=== PATIENT | male | born 1985 | race Caucasian/White ===

== ENCOUNTER 2024-08-17 10:24 | Outpatient (RCR) | payer MEDICAID, SELFPAY ==
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
== END 2024-10-12 10:25 | disposition still patient (30) ==
LOC: HO.SH 10:24
PROVIDERS: PCP Internal Medicine; Visit Provider Physician Assistant
DX: S06.9X0S Unspecified intracranial injury without loss of consciousness, sequela (principal)
CPT/HCPCS: 92523

== ENCOUNTER 2024-12-22 10:07 | Outpatient (REF) | payer MEDICAID, SELFPAY ==
--- OUTSIDE RECORDS SUMMARY | 2024-12-22 10:51 | XMS_ITS | Clinical Summary ---
Author Organization [facility] Address [address] [place] [address] Phone Care Team Providers Care Tax Manager Public Name Role Phone Sharan Peña Primary Care Provider Allergies Active Allergy Reactions Criticality Noted Date Comments Meperidine Hcl 10/23/2008 Medications fexofenadine-pse udoephedrine (Jazmin-D 24 Hour) 180-240 mg per 24 hr tablet 1 tab po daily 11/16/2008 Active loratadine (CLARITIN) 10 mg tablet 1 TABLET DAILY 11/16/2008 Active OLANZapine (ZyPREXA) 20 mg tablet 1 TABLET DAILY Active Active Problems Problem Noted Date Diagnosed Date Alcohol dependence [place] [place], [facility] [place]) Anasarca 03/09/2024 Cannabis use, uncomplicated 03/09/2024 Diabetes ([facility] [place], [facility] [place]) 03/09/2024 Erythema intertrigo 03/09/2024 Hyperlipidemia 03/09/2024 Obesity 03/09/2024 Pilar cyst 03/09/2024 Sleep apnea 03/09/2024 Substance use disorder 03/09/2024 Tetraplegia ([facility] [place], [facility]) Thrombosis 03/09/2024 Traumatic brain injury ([facility], [facility] ) 03/09/2024 Bipolar disorder ([facility] [place], [facility] [place]) 01/2009 Hepatitis C, chronic ([facility] [place], [facility] [place]) 10/23/2008 Immunizations Name Administration Dates Next Due DTP 08/02/1991, 8,03/02/1987, 987,1986 [id number] (Pentacel) 2mo to less than 5yo 03/02/1988 Hepatitis B Pediatric (Enger ix B; Recombivax HB) to less than 20 yo 12/02/1998,06/28/1998,05/24/1998 MMR, measles mumps and rubel la Live (Priorix; M-M-R II) 12mo and older 05/24/1998,10/01/1987 OPV 08/02/1991, 8,03/02/1987, 987,1986 Td Tetanus diptheria (Tdvax) 7yo and older 12/02/1998 Surgical History Surgery Date Site/Laterality Comments OTHER SURGICAL HISTORY PROCEDURE: DENIES PREVIOUS SURGERY Medical History Medical History Date Comments Infectious mononucleosis DX:Infe ctious mononucleosis; COMMENT: 06/19 Bipolar disorder ([facility] V2 4, [facility] V28) DX:Bipolar disorder (HCC) Diabetes ([facility] V24, [facility] V28) 03/09/2024 DX:Diabetes ([facility]) Hyperlipidemia 03/09/2024 DX:Hyperlipidemi a Obesity 03/09/2024 DX:Obesity Sleep apnea 03/09/2024 DX:Sleep apnea Anasarca 03/09/2024 DX:Anasarca Traumatic brain injury ([facility] V24, [facility] V28) 03/09/2024 DX:Traumatic brain injury ([facility]) Alcohol dependence ([facility] V24, [facility] V28) 03/09/2024 DX:Alcohol dependence (HCC) Cannabis use, uncomplicated 03/09/2024 DX:C annabis use, uncomplicated Substance use disorder 03/09/2024 DX:Substa nce use disorder Thrombosis 03/09/2024 DX:Thrombosis Erythema intertrigo 03/09/2024 DX:Erythema intertrigo Family History Relation Name Status Comments Father Alive 04/07/60 Mother Alive 11/26/59 Sister Alive RADHA 05/10/90 Social History Tobacco Use Types Packs/Day Years Used Date Smoking Tobacco: Never Assessed Cigarettes Smokeless Tobacco: Never Alcohol Use Standard Drinks/Week Comments Yes 0 (1 standard drink = 0.6 oz pur e alcohol) Sex and Gender Information Value Date Recorded Sex Assigned at Not on file Legal Sex Male 11:01 PM EST Gender Identity Not on file Sexual Orientation Not on file Obstetrics History Last Filed Vital Signs Vital Sign Reading Time Taken Comments Blood Pressure 103/70 03/09/2024 3:38 PM EDT R A rm Pulse 93 03/09/2024 3:38 PM EDT Temperature - - Respiratory Rate - - Oxygen Saturation - - Inhaled Oxygen Concentration - - Weight 117 kg (257 lb) 08/09/2024 10:26 AM EST Height 177.8 cm (5' 10 ) 08/09/2024 10:26 AM EST Body Mass Index 36.88 08/09/2024 10:26 AM EST Plan of Treatment Upcoming Encounters Date Type Department Care Team (Late st Contact Info) Description 01/08/2025 9:45 AM EDT Office Visit Orthopedic Surgery - [place] [address] [phone] Aryan Fuentes, DPKeturah [address] [address] Health Maintenance Due Date Last Done Comments Diabetes: Annual Foot Exam 1996 Diabetes: Annual Retina Eye Exam 1996 Hepatitis A Vaccines (1 of 2 - Risk 2-dose series) 2005 Pneumococcal Vaccine: Pediatrics (0 to 5 Years) and At-Risk Patients (6 to 64 Years) (1 of 2 - PCV) 2005 DTaP,Tdap,and Td Vaccines (7 - Td or Tdap) 12/02/2008 12/02/1998, 08/02/1991, 03/02/1988, Additional history exists COVID-19 Vaccine ( season) 2024 Cholesterol Screening (Lipid Panel) 05/18/2024 Depression Screening 05/18/2024 Diabetes: Annual Urine Albumin-Creatinine Ratio (uACR) 05/18/2024 Diabetes: Blood Sugar Control Test (HGBA1C) 05/18/2024 HIV Screening 05/18/2024 Hepatitis C Screening 05/18/2024 Social Influencers of Health Screening 05/18/2024 Influenza Vaccine (Season Ended) 2025 Diabetes: Annual GFR (Glomerular Filtration Rate) 04/28/2025 04/28/2024 HIB Vaccines Completed 03/02/1988 IPV Vaccines Completed 08/02/1991, 02/16, 03/02/1988, Additional history exists MMR Vaccines Completed 05/24/1998, 10/01/1987 Hepatitis B Vaccines Completed 12/02/1998, 06/28/1998, 05/24/1998 HPV Vaccines Aged Out No longer eligi ble based on patient's age to complete this topic Meningococcal ACWY Vaccine Aged Out N o longer eligible based on patient's age to complete this topic Meningococcal B Vaccine Aged Out No l onger eligible based on patient's age to complete this topic RSV Immunization Patients Under 20 months Aged Out No longer eligible based on patient's age to complete this topic Varicella Vaccines Aged Out No longer eligible based on patient's age to complete this topic Insurance [place] - [place] Care Teams Tax Manager Public Relationship Specialty Start Date End Date Sharan Peña PA [address] [place] [phone] [facility] - General 04/18/14
== END 2024-12-22 10:08 | disposition home or self-care (01) ==
LOC: HO.SH 10:07
PROVIDERS: Visit Provider Physician Assistant
DX: Z01.118 Encounter for examination of ears and hearing with other abnormal findings (principal); H93.293 Other abnormal auditory perceptions, bilateral
CPT/HCPCS: 92553; 92567

== ENCOUNTER 2025-01-15 10:00 | Outpatient (RCR) | payer MEDICAID, SELFPAY ==
--- NOTE | 2025-01-11 12:40 | MHC.SL.SOA ---
Addendum entered and electronically signed by Christianne Ventura MA, CCC-PIPELINES LABORER 05/24/25 15:40: Authorization was obtained for 12 visits from 01/21-04/22. Patient did not show up for consecutive appointments on 12/18, 01/01, 01/15, and 01/22. No calls were made to cancel. The Speech and Hearing office called to confirm patient's appointment on 02/05. [facility] staff confirmed that they would attend that morning, however, did not arrive for the appointment. [facility] staff requested to cancel patient's appointment the subsequent week on 02/12, as patient was reportedly refusing to come. His next appointment on 02/19 was also cancelled due to transportation issues. A voicemail message was left for the prison manager site, Vashti. Vashti returned this call, and PIPELINES [employer]ORER left another message, however, has not been able to get in contact with Vashti. Patient would benefit from continued speech therapy services targeting multiple areas of concern, including speech clarity, voice, and word retrieval, however, it has been a challenge for patient to attend outpatient speech therapy at another location. Patient is discharged from outpatient speech therapy services, as his attendance has been limited and it has been a challenge for him to commit to weekly appointments at another facility. If he is interested in continuing speech therapy at any point, he would benefit from VNA services, which would provide speech therapy on site at the prison with goals that would target patient's functional needs for daily living. Please be advised, to establish services through the VNA, patient would need a physician's referral. Original Note: Referring Provider: KWASI Cuellar Reason for Referral: TBI with Sequelae Date of Plan of Treatment:08/17/24 Onset of Symptoms/Illness:08/17/17 Date Treatment Started:08/17/24 Medical Diagnosis:TBI (2009), Craniotomy secondary to L Epidural Hemorrhage (2018); Tetraplegia; Obstructive Sleep Apnea Primary Speech Language Diagnosis:R49.0 Dysphonia Secondary Speech Language Diagnosis:R48.2 Apraxia Reason for Visit:Non-billable Event Subjective: Sergio Irving is a 39 year old man presenting with mild anomic aphasia and moderate to severe dysphonia, characterized by poor respiratory coordination for phonation and strained/strangled vocal quality. Sergio's history is significant for TBI and spinal chord injury in 2009, craniotomy in 2018 to evacuate at left sided epidural hemorrhage, tetraplegia, and sleep apnea on CPAP at night. He currently resides in a prison in [place] and is accompanied to his appointments by a caregiver from the home. Sergio's attendance to his speech therapy session has been inconsistent, attending 4 out of 8 scheduled sessions between 11/13/24-01/08/25. Objective: 3.1 Mango will use a semantic strategy (category/antonym/synonym) in a word finding task with 80% accuracy In Progress: Sergio provided 3 synonyms per target word in 88% of trials when provided with moderate verbal and gestural cues. Sergio provided an opposite word to abstract targets (i.e. bland, courtesy, public, stubborn, elegant) in 20/22 trials when provided with maximal verbal and gestural cues. Assessment: Rhyss voice was perceived as more strained/strangled with longer delays initiating voicing. He also answered many questions by gesture, i.e. giving a thumbs up/down. Staff member reports Rhyss voice has sounded this way for approximately a week. Sergio says his voice seems worse at the end of a day and gets soft as a whisper, but otherwise does not notice any patterns regarding his speech production. He acknowledges he does not drink nearly enough, having just one cup of juice with every meal. Sergio reports avoiding drinking because he does not like the process of using the bathroom with assistance. Sergio does have history of tracheostomy, which he believes was placed around 20 years ago. During that time, he was on a tube feed. His stoma now appears closed and he has been back on a PO diet. He does not use any air purifiers or humidifiers and keeps a fan on all day long. He also gets supplemental oxygen at night. Today's session mainly targeted word finding. Sergio was given a target word and was asked to generate 3 other similar words. He benefitted from varied cues, including orthographic cues (i.e. it starts with the letter g ) and sentence completion cues (i.e. you act one way in public, and another way in pr... ). PIPELINES LABORER provided instruction to staff on these cues to assist with the completion of home activities. Notes: As we approach the end date to Sergio's authorization period, a request will be made to continue therapy. Sergio is recommended 12 additional speech therapy sessions (1x weekly x 12 weeks) to target dysphonia and anomia, with goals aimed at easy onset/relaxation techniques, improved breath support, and word retrieval strategies. PIPELINES LABORER to discuss scheduling with Sergio and caregivers, as it is important Sergio receive services on a consistent basis to maximize progress. Plan: Goal # : 1.1 Mango will increase sustaining relaxed inhalation and exhalation for a cyclical count of 8 or more. 1.2 Using an easy and relaxed exhalation, Mango will sustain phonation on a vowel sound for at least five seconds Status of Goal: Goal Continued Goal # : 2.1 Mango will use breath support to produce vocal flow and easy onset for vcv, vowel initial words, phrases and sentences with 80% accuracy 2.2 Mango will use vocal flow techniques to produce increased volume and resonance for words, phrases and sentences with 80% accuracy Status of Goal: Goal Continued Goal # : 3.1 Mango will use a semantic strategy (category/antonym/synonym) in a word finding task with 80% accuracy 3.2 Mango will use a descriptive/circumlocution strategy in a word finding task with 80% accuracy 3.3 Mango will use a visualization strategy in a word finding task with 80% accuracy. Status of Goal: Goal Continued Goal # : 4.1: Mango will produce well supported vocal production and fluent speech in connected conversation with 80% accuracy Status of Goal: Goal Continued Seen by: Graduate/Clinical Fellow: No Supervisory Statement: f_Reg Query Last Value , MHC.AU.SIGNATUR Speech Language Pathologist: Christianne Ventura M.A., CCC-P[employer]ELINES LABORER
== END 2025-05-25 08:56 | disposition home or self-care (01) ==
LOC: HO.SH 10:00
PROVIDERS: Visit Provider Physician Assistant
DX: S06.9X0S Unspecified intracranial injury without loss of consciousness, sequela (principal)
CPT/HCPCS: 92507